=== PATIENT | female | born 1985 | race Caucasian/White ===

== ENCOUNTER → 2016-11-06 | Outpatient (CLI) | payer OTHER ==
[2016-11-06 13:03] LABS: BASO % 0.5 % (0.0-1.0); EOS # 0.1 K/mm3 (0.0-0.50); EOS % 1.3 % (0.0-3.0); LARGE UNSTAINED CELL # 0.2 K/mm3 (0.0-0.4); LARGE UNSTAINED CELL % 2.7 % (0.0-4.0); LYMPH # 2.2 K/mm3 (1.5-4.5); LYMPH % 27.1 % (24.0-44.0); MEAN CORPUSCULAR HEMOGLOBIN 30.4 pg (27.0-33.0); MEAN CORPUSCULAR HGB CONC 33.1 g/dl (32.0-36.5); MEAN CORPUSCULAR VOLUME 91.9 fl (80.0-96.0); MONO # 0.4 K/mm3 (0.0-0.8); MONO % 5.9 % (0.0-5.0); NEUTROPHILS # 4.6 K/mm3 (1.8-7.7); NEUTROPHILS % 62.5 % (36.0-66.0); PLATELET COUNT, AUTOMATED 250 k/mm3 (150-450); RED CELL DISTRIBUTION WIDTH 12.8 % (11.5-14.5); WHITE BLOOD COUNT 7.4 K/mm3 (4.0-10.0)
== END ==
LOC: M WUC 10:43
PROVIDERS: ATTEND Physician Assistant
DX: R53.83 Other fatigue (principal)

== ENCOUNTER → 2017-04-02 | Outpatient (CLI) | payer OTHER ==
[2017-04-02 20:13] LABS: FREE T4 0.79 NG/DL (0.76-1.46)
== END ==
LOC: M WUC 15:57
PROVIDERS: ATTEND Physician Assistant
DX: E03.9 Hypothyroidism, unspecified (principal)

== ENCOUNTER 2017-08-15 12:35 | Emergency (ER) | payer OTHER ==
[~2017-08-15] VITALS: Ht 160 cm; Wt 68.2 kg
[2017-08-15] MEDS ORDERED: LEVO25TA5 PO (12:41)
[2017-08-15] MEDS ORDERED: NS 1,000 ML IV ONE ×2 (13:30→14:15)
[2017-08-15 13:43] LABS: BASO % 0.4 % (0.0-1.0); EOS # 0.1 10^3/uL (0.0-0.50); EOS % 0.8 % (0.0-3.0); IMMATURE GRANULOCYTE % 0.7 % (0-0); LYMPH # 2.4 10^3/uL (1.5-4.5); LYMPH % 22.9 % (24.0-44.0); MEAN CORPUSCULAR HGB CONC 33.7 g/dl (32.0-36.5); MEAN CORPUSCULAR VOLUME 89.1 fl (80.0-96.0); MONO # 0.5 10^3/uL (0.0-0.8); MONO % 5.1 % (0.0-5.0); NEUTROPHILS # 7.4 10^3/uL (1.8-7.7); NEUTROPHILS % 70.1 % (36.0-66.0); PLATELET COUNT, AUTOMATED 320 10^3/uL (150-450); RED CELL DISTRIBUTION WIDTH 12.8 % (11.5-14.5); WHITE BLOOD COUNT 10.5 10^3/uL (4.0-10.0)
[2017-08-15] MEDS ORDERED: MORPHINE 4 MG/ML 1ML SYRINGE IV ONE (13:45)
[2017-08-15 14:09] LABS: ANION GAP 6 MEQ/L (8-16); BLOOD UREA NITROGEN 7 MG/DL (7-18); CARBON DIOXIDE LEVEL 26 MEQ/L (21-32); CHLORIDE LEVEL 107 MEQ/L (98-107); CREATININE FOR GFR 0.72 MG/DL (0.55-1.02); GLOMERULAR FILTRATION RATE > 60.0 (>60); GLUCOSE, FASTING 105 MG/DL (70-105); POTASSIUM SERUM 3.8 MEQ/L (3.5-5.1); SODIUM LEVEL 139 MEQ/L (136-145)
--- NOTE | 2017-08-15 15:17 | REP ---
PELVIC ULTRASOUND: Real-time sonographic evaluation of the pelvis performed utilizing transabdominal and endovaginal technique. The uterus measures 9.3 x 4.6 x 5.8 cm. Endometrium is thickened at 20 mm. Clot is seen in the cervix. There is no intrauterine gestational sac present. Right ovary measures 3.5 x 2.1 x 2.7 cm and contains a complex cystic structure, 1.9 x 1.2 x 1.3 cm, probably representing a corpus luteum. Left ovary is normal in size and echotexture measuring 3.2 x 2.2 x 2.4 cm. There is no other evidence of adnexal mass or free fluid. There is no evidence of ovarian torsion, with blood flow seen in each ovary with duplex Doppler evaluation, RI right ovary 0.48 and left ovary 0.63. IMPRESSION: Thickened endometrium at 20 mm with apparent clot in the cervix. No intrauterine gestational sac. No adnexal mass or free fluid. Complex cystic structure in the right ovary 1.9 cm in diameter probably represents a complex corpus luteum. Findings most likely represent missed (AB). I cannot exclude ectopic . Signed by Garrick Man MD 08/15/2017 03:20 P
[2017-08-15] MEDS ORDERED: ZOFR4TAB3 PO (15:50)
[2017-08-15] MEDS ORDERED: NORCOTAB PO (15:50)
[2017-08-15 16:10] VITALS: BP 103/56
== END 2017-08-15 16:12 | disposition home or self-care (01) ==
LOC: M ED 12:35
DX: O03.9 Complete or unspecified spontaneous abortion without complication (principal); O20.8 Other hemorrhage in early pregnancy; O99.281 Endocrine, nutritional and metabolic diseases complicating pregnancy, first trimester; Z79.899 Other long term (current) drug therapy; Z88.0 Allergy status to penicillin

== ENCOUNTER → 2017-08-15 | Outpatient (CLI) | payer OTHER ==
[~2017-08-15] MED LIST: LEVO25TA5 PO; NORCOTAB PO; ZOFR4TAB3 PO
== END ==
LOC: M WUC 10:38
PROVIDERS: ATTEND Advanced Practice Midwife
DX: O02.1 Missed abortion (principal)

== ENCOUNTER → 2017-08-22 | Outpatient (CLI) | payer OTHER | LOC: M WUC 13:07 | PROVIDERS: ATTEND Advanced Practice Midwife | DX: O02.1 Missed abortion (principal) ==

== ENCOUNTER → 2017-10-04 | Outpatient (CLI) | payer OTHER ==
[2017-10-04 19:04] LABS: HCG, SERUM QUANTITATIVE 5 MIU/ML
== END ==
LOC: M WUC 11:12
DX: O02.1 Missed abortion (principal)
CPT/HCPCS: 84702

== ENCOUNTER → 2017-12-06 | Outpatient (CLI) | payer OTHER ==
[2017-12-06 16:57] LABS: BASO % 0.5 % (0.0-1.0); EOS # 0.1 10^3/uL (0.0-0.50); HEMATOCRIT 37.8 % (36.0-47.0); HEMOGLOBIN 12.6 g/dl (12.0-16.0); IMMATURE GRANULOCYTE % 0.4 % (0-3.0); LYMPH # 2.6 10^3/uL (1.5-4.5); LYMPH % 31.3 % (24.0-44.0); MEAN CORPUSCULAR HEMOGLOBIN 28.1 pg (27.0-33.0); MEAN CORPUSCULAR HGB CONC 33.3 g/dl (32.0-36.5); MEAN CORPUSCULAR VOLUME 84.2 fl (80.0-96.0); MONO # 0.6 10^3/uL (0.0-0.8); NEUTROPHILS % 59.8 % (36.0-66.0); PLATELET COUNT, AUTOMATED 288 10^3/uL (150-450); RED BLOOD COUNT 4.49 10^6/uL (4.00-5.40); RED CELL DISTRIBUTION WIDTH 15.5 % (11.5-14.5); WHITE BLOOD COUNT 8.4 10^3/uL (4.0-10.0)
[2017-12-06 17:23] LABS: FREE T4 0.88 NG/DL (0.76-1.46)
[2017-12-06 18:13] LABS: CHLAMYDIA DNA AMPLIFICATION NEGATIVE (NEGATIVE); GC DNA AMPLIFICATION NEGATIVE (NEGATIVE)
[2017-12-07 11:01] LABS: RUBELLA IgG QUALITATIVE IMMUNE (IMMUNE)
[2017-12-07 11:22] LABS: HBsAg Prenatal NEGATIVE (NEGATIVE)
[2017-12-07 11:39] LABS: HIV 1&2 SCREEN CENTAUR NEGATIVE (NEGATIVE)
== END ==
LOC: M WUC 14:06
DX: Z34.81 Encounter for supervision of other normal pregnancy, first trimester (principal); Z3A.08 8 weeks gestation of pregnancy

== ENCOUNTER → 2017-12-10 | Outpatient (REF) | payer OTHER | LOC: M LABWUC 16:12 | DX: Z34.81 Encounter for supervision of other normal pregnancy, first trimester (principal); Z3A.08 8 weeks gestation of pregnancy | CPT/HCPCS: 86900 ==

== ENCOUNTER → 2017-12-20 | Outpatient (REF) | payer OTHER | LOC: M LAB REF 16:58 | DX: Z34.81 Encounter for supervision of other normal pregnancy, first trimester (principal); Z3A.00 Weeks of gestation of pregnancy not specified ==

== ENCOUNTER → 2018-02-06 | Outpatient (CLI) | payer OTHER, MEDICAID ==
[2018-02-06 17:19] LABS: FREE T4 0.87 NG/DL (0.76-1.46)
== END ==
LOC: M WUC 14:43
DX: E03.9 Hypothyroidism, unspecified (principal)
CPT/HCPCS: 84443

== ENCOUNTER → 2018-02-11 | Outpatient (CLI) | payer OTHER, MEDICAID | LOC: M SMT 10:03 | DX: Z34.82 Encounter for supervision of other normal pregnancy, second trimester (principal); Z36.89 Encounter for other specified antenatal screening; Z3A.18 18 weeks gestation of pregnancy | CPT/HCPCS: 76811 ==

== ENCOUNTER → 2018-03-04 | Outpatient (CLI) | payer OTHER, MEDICAID | LOC: M SMT 07:53 | DX: Z34.82 Encounter for supervision of other normal pregnancy, second trimester (principal); Z36.89 Encounter for other specified antenatal screening; Z3A.21 21 weeks gestation of pregnancy | CPT/HCPCS: 76816 ==

== ENCOUNTER → 2018-04-26 | Outpatient (CLI) | payer OTHER, MEDICAID ==
[2018-04-26 19:15] LABS: GLUCOSE CHALLENGE TEST 1 HOUR 147 MG/DL (LESS THAN 140)
[2018-04-26 19:21] LABS: BASO % 0.4 % (0.0-1.0); EOS # 0.1 10^3/uL (0.0-0.50); EOS % 0.7 % (0.0-3.0); HEMATOCRIT 35.3 % (36.0-47.0); HEMOGLOBIN 11.7 g/dl (12.0-15.5); IMMATURE GRANULOCYTE % 1.5 % (0-3.0); LYMPH # 2.4 10^3/uL (1.5-4.5); LYMPH % 22.9 % (24.0-44.0); MEAN CORPUSCULAR HEMOGLOBIN 30.6 pg (27.0-33.0); MEAN CORPUSCULAR HGB CONC 33.1 g/dl (32.0-36.5); MEAN CORPUSCULAR VOLUME 92.4 fl (80.0-96.0); MONO # 0.7 10^3/uL (0.0-0.8); MONO % 6.6 % (0.0-5.0); NEUTROPHILS # 7.2 10^3/uL (1.8-7.7); NEUTROPHILS % 67.9 % (36.0-66.0); PLATELET COUNT, AUTOMATED 288 10^3/uL (150-450); RED BLOOD COUNT 3.82 10^6/uL (4.00-5.40); RED CELL DISTRIBUTION WIDTH 13.5 % (11.5-14.5); WHITE BLOOD COUNT 10.6 10^3/uL (4.0-10.0)
== END ==
LOC: M SMT 13:09
DX: Z34.82 Encounter for supervision of other normal pregnancy, second trimester (principal)

== ENCOUNTER → 2018-05-09 | Outpatient (CLI) | payer OTHER, MEDICAID ==
[2018-05-09 08:25] LABS: GLUCOSE, FASTING 84 MG/DL (LESS THAN 95)
[2018-05-09 08:50] LABS: 1 HR GLUCOSE 148 MG/DL (LESS THAN 180)
[2018-05-09 10:12] LABS: 2 HR GLUCOSE 92 MG/DL (LESS THAN 155)
[2018-05-09 10:51] LABS: 3 HR GLUCOSE 77 MG/DL (LESS THAN 140)
== END ==
LOC: M LAB 07:01
DX: Z36.89 Encounter for other specified antenatal screening (principal); Z3A.00 Weeks of gestation of pregnancy not specified
CPT/HCPCS: 82951

== ENCOUNTER → 2018-06-14 | Outpatient (REF) | payer OTHER, MEDICAID | LOC: M LAB REF 16:51 | DX: Z34.83 Encounter for supervision of other normal pregnancy, third trimester (principal) ==

== ENCOUNTER → 2018-06-24 | Outpatient (CLI) | payer OTHER, MEDICAID | LOC: M WUC 15:49 | DX: Z34.83 Encounter for supervision of other normal pregnancy, third trimester (principal) ==

== ENCOUNTER 2018-07-20 18:26 | Outpatient (CLI) | payer OTHER, MEDICAID | END 2018-07-20 20:30 | disposition home or self-care (01) | LOC: M LDO 18:26 | DX: O47.1 False labor at or after 37 completed weeks of gestation (principal); Z3A.41 41 weeks gestation of pregnancy | CPT/HCPCS: 59025 ==

== ENCOUNTER → 2019-01-03 | Outpatient (CLI) | payer OTHER, MEDICAID ==
[~2019-01-03] MED LIST changes: +HYDR-3715 PO; +IBUP1TAB7 PO; +LEVO50TA5 PO; -NORCOTAB PO; +PERCOCET PO; +PRENTAB9 PO; +ZOFR4TAB14 PO; -ZOFR4TAB3 PO
[2019-01-03 18:38] LABS: FREE T4 0.73 NG/DL (0.76-1.46); THYROID STIMULATING HORMONE 6.28 uIU/ML (0.358-3.740)
== END ==
LOC: M WUC 10:58
PROVIDERS: ATTEND Nurse Practitioner Family
DX: E06.3 Autoimmune thyroiditis (principal)

== ENCOUNTER → 2019-01-06 | Outpatient (REF) | payer OTHER, MEDICAID | LOC: M LAB REF 17:10 | PROVIDERS: ATTEND Internal Medicine Endocrinology, Diabetes & Metabolism | DX: E04.1 Nontoxic single thyroid nodule (principal) ==

== ENCOUNTER → 2019-01-07 | Outpatient (CLI) | payer OTHER, MEDICAID | LOC: M WUC 11:04 | PROVIDERS: ATTEND Internal Medicine Endocrinology, Diabetes & Metabolism | DX: E04.1 Nontoxic single thyroid nodule (principal) ==

== ENCOUNTER 2019-10-13 09:47 | Day surgery (SDC) | payer OTHER ==
[~2019-10-13] VITALS: Ht 160 cm; Wt 74.1 kg
[~2019-10-13 09:47] MED LIST changes: +LIDOCAINE 1% MDV 20ML VIAL SQ PRN; +LR 1,000 ML IV SCH
[2019-10-13 10:24] LABS: HEMOGLOBIN 13.7 g/dl (12.0-15.5); MEAN CORPUSCULAR HEMOGLOBIN 28.5 pg (27.0-33.0); MEAN CORPUSCULAR HGB CONC 32.6 g/dl (32.0-36.5); MEAN CORPUSCULAR VOLUME 87.5 fl (80.0-96.0); PLATELET COUNT, AUTOMATED 308 10^3/uL (150-450); WHITE BLOOD COUNT 6.9 10^3/uL (4.0-10.0)
[2019-10-13] MEDS ORDERED: LIDOCAINE 1% SDV INJ 30 ML VIAL As Ordered ONE (11:50)
[2019-10-13] MEDS ORDERED: MIDAZOLAM INJ 2 MG/2 ML VIAL (J2250) As Ordered ONE (11:55)
[2019-10-13] MEDS ORDERED: propofoL 200 MG/20 ML VIAL As Ordered ONE ×2 (11:55→11:59)
[2019-10-13] MEDS ORDERED: fentaNYL 100 MCG/2 ML INJECTION (J3010) As Ordered ONE (11:55)
[2019-10-13] MEDS ORDERED: PHENYLephrine HCL 500 MCG/5 ML (100MCG/ML) SYRINGE (J2370) As Ordered ONE (12:10)
[2019-10-13] MEDS ORDERED: ePHEDrine SULFATE 25 MG/5 ML(5MG/ML) SYRINGE As Ordered ONE (12:10)
[2019-10-13] MEDS ORDERED: KETOROLAC 60 MG/2 ML VIAL (J1885) As Ordered ONE (12:14)
--- NOTE | 2019-10-13 12:41 | RO ---
DATE OF PROCEDURE: 10/13/2019 PREPROCEDURE DIAGNOSIS: Embryonic demise at 8 weeks gestation. POSTPROCEDURE DIAGNOSIS: Embryonic demise at 8 weeks gestation. PROCEDURE: D, E, and C. SURGEON: Cain Tucker MD STATION EXAMINER: ANESTHESIA: Local with sedation. ESTIMATED BLOOD LOSS: 50 mL. URINE OUTPUT: 50 mL. FINDINGS: Moderate amounts of products of conception, retroverted uterus. DESCRIPTION OF PROCEDURE: The patient was taken to the operative room where IV sedation was given. She was prepped and draped in a sterile fashion in the dorsal lithotomy position. Speculum was placed in the vagina. The cervix was injected circumferentially with 20 mL of 1% Lidocaine. The anterior lip of the cervix was grasped with a tenaculum. Cervix was dilated with taper dilators. 9 mm suction curette was placed through the internal os. The suction device was activated and the probe gently rotated until products of conception were noted coming through the suction tubing. Sharp curettage was performed, the uterine cavity was deemed to be empty. Good hemostasis noted. Sponge and instrument counts were correct.
[2019-10-13] MEDS ORDERED: ONDANSETRON 4MG/2ML VIAL (J2405) IV PRN (12:45)
[2019-10-13] MEDS ORDERED: METOCLOPRAMIDE INJ 10MG/2ML VIAL (J2765) IV PRN (12:45)
[2019-10-13] MEDS ORDERED: LR 1,000 ML IV SCH ×2 (12:45→13:30)
[2019-10-13] MEDS ORDERED: PERCOCET 5MG/325MG TAB PO PRN (12:45)
[2019-10-13 12:55] VITALS: BP 106/59
[2019-10-13] MEDS ORDERED: ACETAMINOPHEN 500 MG TAB PO ONE (13:00)
[2019-10-13] MEDS ORDERED: DOXYCYCLINE HYCLATE 100 MG TAB PO ONE (14:00)
[2019-10-13] MEDS ORDERED: ACETAMINOPHEN *IV* 1,000 MG in IV 1 EA IV ONE (14:00)
== END 2019-10-13 13:45 | disposition home or self-care (01) ==
LOC: M SDC 09:47
PROVIDERS: ATTEND Specialist
DX: O02.1 Missed abortion (principal); E03.9 Hypothyroidism, unspecified; G43.909 Migraine, unspecified, not intractable, without status migrainosus; Z88.0 Allergy status to penicillin; Z91.030 Bee allergy status; Z79.899 Other long term (current) drug therapy
CPT/HCPCS: 36415; 59820; 85027; 88305; J1885; J2250; J2370; J3010

== ENCOUNTER 2019-11-29 13:24 | Emergency (ER) | payer OTHER ==
[~2019-11-29] VITALS: Ht 160 cm; Wt 73.1 kg
[~2019-11-29 13:24] MED LIST changes: -LIDOCAINE 1% MDV 20ML VIAL SQ PRN; -LR 1,000 ML IV SCH
[2019-11-29] MEDS ORDERED: ONDA-83 (13:30)
[2019-11-29] MEDS ORDERED: LEVO125T4 (13:30)
[2019-11-29] MEDS ORDERED: PHEN-593 (13:30)
[2019-11-29] MEDS ORDERED: NITR100C2 (13:30)
[2019-11-29] MEDS ORDERED: GI COCKTAIL 50ML BTL(HYOSCYAMINE/MAALOX/LIDOCAINE VISCOUS)(1:3:1) PO ONE (14:15)
--- NOTE | 2019-11-29 14:15 | REP ---
Portable chest x-ray: Single view. History: Chest pain. Findings: The lungs are well inflated and clear. The pleural angles are sharp. Cardiomediastinal silhouette is unremarkable. No bony abnormalities seen. Pulmonary vasculature is not increased. Impression: Negative portable chest x-ray. Electronically Signed by All Bennett MD 11/29/2019 02:07 P
[2019-11-29 14:39] LABS: BASO % 0.3 % (0.0-1.0); EOS # 0.1 10^3/uL (0.0-0.5); EOS % 1.8 % (0.0-3.0); HEMATOCRIT 42.4 % (36.0-47.0); LYMPH # 2.3 10^3/uL (1.5-5.0); LYMPH % 33.4 % (24.0-44.0); MEAN CORPUSCULAR HEMOGLOBIN 28.9 pg (27.0-33.0); MEAN CORPUSCULAR VOLUME 87.4 fl (80.0-96.0); MONO # 0.5 10^3/uL (0.0-0.8); MONO % 7.9 % (0.0-5.0); NEUTROPHILS # 3.8 10^3/uL (1.5-8.5); NEUTROPHILS % 56.3 % (36.0-66.0); PLATELET COUNT, AUTOMATED 310 10^3/uL (150-450); RED BLOOD COUNT 4.85 10^6/uL (4.00-5.40); WHITE BLOOD COUNT 6.7 10^3/uL (4.0-10.0)
[2019-11-29 14:50] LABS: INR 1.01
[2019-11-29 14:53] LABS: D-DIMER QUANT 525.1 ng/ml (<500)
[2019-11-29 15:01] LABS: HCG, SERUM QUALITATIVE NEGATIVE (NEGATIVE)
[2019-11-29 15:03] LABS: ALBUMIN 4.1 GM/DL (3.2-5.2); ALT/SGPT 21 U/L (12-78); BILIRUBIN,DIRECT < 0.1 MG/DL (0.0-0.2); BILIRUBIN,TOTAL 0.2 MG/DL (0.2-1.0); BLOOD UREA NITROGEN 13 MG/DL (7-18); CALCIUM LEVEL 8.8 MG/DL (8.5-10.1); CARBON DIOXIDE LEVEL 25 MEQ/L (21-32); CHLORIDE LEVEL 108 MEQ/L (98-107); CK-MB VALUE MASS < 1.0 NG/ML (<3.6); CPK CREATINE PHOSPHOKINASE 56 U/L (26-192); CREATININE FOR GFR 0.88 MG/DL (0.55-1.30); GLOMERULAR FILTRATION RATE > 60.0 (>60); GLUCOSE, FASTING 96 MG/DL (70-100); LIPASE 116 U/L (73-393); MB/CK RELATIVE INDEX 1.79 (< OR =4); POTASSIUM SERUM 4.1 MEQ/L (3.5-5.1); SODIUM LEVEL 141 MEQ/L (136-145); TOTAL PROTEIN 7.3 GM/DL (6.4-8.2); TROPONIN I < 0.02 NG/ML (< 0.10)
[2019-11-29 15:05] LABS: INFLUENZA A AMPLIFICATION NEGATIVE (NEGATIVE); INFLUENZA B AMPLIFICATION NEGATIVE (NEGATIVE)
[2019-11-29] MEDS ORDERED: ISOVUE-370 76% 100ML VIAL (Q9967) As Ordered ONE (15:39)
[2019-11-29] MEDS ORDERED: KETOROLAC 30 MG/ML VIAL (J1885) IV ONE (16:30)
[2019-11-29 17:30] VITALS: BP 100/56
[2019-11-29] MEDS ORDERED: BACT800T5 PO (17:54)
[2019-11-29] MEDS ORDERED: PRIL20TA2 PO (17:56)
--- NOTE | 2019-11-29 18:47 | ECGEPIP ---
[facility] - ED Test Date: 2019-11-29 Pat Name: SAUNDRA MAR Department: Room: - Gender: Female [employer] Manager: TC : 1985 Requested By: Segundo Lopez Order Number: [id number] Reading MD: Clare Sanchez Measurements Intervals [place] Rate: 80 P: 38 SC: 121 QRS: 64 QRSD: 94 T: 41 QT: 366 QTc: 425 Interpretive Statements SINUS RHYTHM MINIMAL ST DEPRESSION NO PRIOR Electronically Signed on 11-29-2019 18:47:41 EST by Clare Sanchez
--- NOTE | 2019-11-30 06:52 | REP ---
CT pulmonary angiogram: With IV contrast. History: Chest pain, recent surgery. Elevated D-dimer. Comparison studies: No comparison study. Contrast dose: 75 mL of Isovue [address] technique: Helical scanning is acquired and overlapping 1.5 mm and contiguous 3 mm axial images are reformatted. In addition, maximum intensity projection and multiplanar re-formation images are generated in sagittal and coronal imaging projections. CT pulmonary angiographic findings: There is good opacification of the pulmonary arterial tree. There is no evidence of vessel cutoff or filling defect to suggest pulmonary embolism. Thoracic aorta shows no evidence of aneurysm or dissection. There is no evidence of pleural or pericardial effusion. The lung stone are clear. No infiltrate or atelectasis is seen. No pulmonary nodule or mass lesion is observed. No bony destructive lesion is appreciated. The gallbladder is surgically absent. The visualized upper abdominal structures are otherwise unremarkable. There are tiny surgical clips in the thyroid bed post thyroidectomy. No axillary or supraclavicular adenopathy is seen. Impression: Negative CT pulmonary angiography. No CT evidence of pulmonary embolus or other acute abnormality. The gallbladder and thyroid gland are surgically absent. Electronically Signed by All Bennett MD 11/30/2019 07:48 A
== END 2019-11-29 18:13 | disposition home or self-care (01) ==
LOC: M ED 13:24
DX: R07.89 Other chest pain (principal); T50.905A Adverse effect of unspecified drugs, medicaments and biological substances, initial encounter; E03.9 Hypothyroidism, unspecified; Z79.899 Other long term (current) drug therapy; Z88.0 Allergy status to penicillin; Z91.030 Bee allergy status
CPT/HCPCS: 36415; 71045; 71275; 80048; 80076; 82550; 82553; 83690; 84484; 84703; 85025; 85379; 85610; 87502; 93005; 93041; 94760; 96374; 99285; J1885; Q9967

== ENCOUNTER → 2020-08-09 | Outpatient (CLI) | payer OTHER ==
[~2020-08-09] MED LIST changes: +BACT800T5 PO; +LEVO125T4; +NITR100C2; +ONDA-83; +PHEN-593; +PRIL20TA2 PO
[2020-08-09 13:45] LABS: FREE T4 1.3 NG/DL (0.76-1.46); THYROID STIMULATING HORMONE 2.71 uIU/ML (0.358-3.740)
== END ==
LOC: M WUC 10:07
PROVIDERS: ATTEND Specialist
DX: E03.9 Hypothyroidism, unspecified (principal)

== ENCOUNTER → 2020-08-26 | Outpatient (CLI) | payer OTHER ==
[~2020-08-26] MED LIST changes: -PHEN-593; +PHEN1TAB73
== END ==
LOC: M WUC 11:56
PROVIDERS: ATTEND Specialist
DX: N92.6 Irregular menstruation, unspecified (principal)

== ENCOUNTER → 2020-08-30 | Outpatient (CLI) | payer OTHER ==
[~2020-08-30] MED LIST changes: +MULTTAB20 PO
== END ==
LOC: M WUC 08:33
PROVIDERS: ATTEND Specialist
DX: N92.6 Irregular menstruation, unspecified (principal)

== ENCOUNTER 2020-09-03 09:16 | Day surgery (SDC) | payer OTHER ==
[~2020-09-03] VITALS: Ht 160 cm; Wt 71.1 kg
[~2020-09-03 09:16] MED LIST changes: -MULTTAB20 PO
[2020-09-03] MEDS ORDERED: MULTTAB20 PO (09:28)
[2020-09-03 09:45] LABS: HEMATOCRIT 41.1 % (36.0-47.0); HEMOGLOBIN 13.4 g/dl (12.0-15.5); MEAN CORPUSCULAR HGB CONC 32.6 g/dl (32.0-36.5); PLATELET COUNT, AUTOMATED 304 10^3/uL (150-450); RED BLOOD COUNT 4.62 10^6/uL (4.00-5.40); WHITE BLOOD COUNT 7.5 10^3/uL (4.0-10.0)
[2020-09-03] MEDS ORDERED: KETOROLAC 60MG 2ML VIAL As Ordered ONE (09:52)
[2020-09-03] MEDS ORDERED: dexameTHASONE 4 MG/ML 1ML VIAL (J1100 PER 1MG) As Ordered ONE (09:52)
[2020-09-03] MEDS ORDERED: ONDANSETRON 4MG/2ML VIAL As Ordered ONE (09:52)
[2020-09-03] MEDS ORDERED: LIDOCAINE 2% 100MG/5ML SDV (FOR ANES.) As Ordered ONE (09:52)
[2020-09-03] MEDS ORDERED: MIDAZOLAM INJ 2MG/2ML VIAL (J2250 PER 1MG) As Ordered ONE (09:53)
[2020-09-03] MEDS ORDERED: propofoL 500 MG/50 ML VIAL As Ordered ONE (09:53)
[2020-09-03] MEDS ORDERED: fentaNYL 100 MCG/2 ML INJECTION (J3010) As Ordered ONE (09:53)
--- NOTE | 2020-09-03 11:58 | ROOPDOC ---
[facility] Report Of Operation Report of Operation DATE OF PROCEDURE: 09/03/20 PREPROCEDURE DIAGNOSES: embryonic demise 7 weeks. POSTPROCEDURE DIAGNOSES: same. PROCEDURE: D+E+C. SURGEON: Janna Begum MD, MD ANESTHESIA: Local with sedation. ESTIMATED BLOOD LOSS: Approximately 20 mL. COMPLICATIONS: none. Findings: Moderate POC's, retroverted uterus. PROCEDURE NOTE: The patient was taken to the operating room where IV sedation was given. She was prepped and draped in a sterile fashion in the dorsal lithotomy position. A speculum was placed in the vagina. The anterior lip of the cervix was grasped with a tenaculum. The cervix was injected circumferentially with 18 cc of 1% lidocaine. The cervix was dilated with tapered dilators. A #8 mm suction curette was inserted through the internal os. The suction device was activated and the curette was gently rotated until products of conception were noted coming through the suction tubing. Sharp curettage was performed. The uterus was deemed empty. All instruments removed. Sponge and instrument counts were correct. The patient went to in stable condition.. JANNA BEGUM MD Sep 03, 2020 11:58
[2020-09-03] MEDS ORDERED: METHYLERGONOVINE MALEATE 0.2 MG/ML VIAL (J2210) As Ordered ONE (12:10)
[2020-09-03] MEDS ORDERED: miSOPROStol 200 MCG TAB (S0191) As Ordered ONE (12:10)
[2020-09-03] MEDS ORDERED: LIDOCAINE 1% SDV 30ML VIAL As Ordered ONE (12:10)
[2020-09-03 12:19] VITALS: BP 120/84
== END 2020-09-03 12:39 | disposition home or self-care (01) ==
LOC: M SDC 09:16
PROVIDERS: ATTEND Specialist
DX: O02.1 Missed abortion (principal); Z88.0 Allergy status to penicillin; Z91.030 Bee allergy status
CPT/HCPCS: 36415; 59820; 85027; 88305; J1100; J1885; J2250; J2405; J3010; U0002

== ENCOUNTER → 2021-10-06 | Outpatient (CLI) | payer OTHER ==
[~2021-10-06] MED LIST changes: +COLA100C5 PO; +IBUP80TA PO; +MULTTAB20 PO; +OXYC1TAB23 PO
== END ==
LOC: M PLALAB 10:37
PROVIDERS: ATTEND Obstetrics & Gynecology
DX: O36.80X0 Pregnancy with inconclusive fetal viability, not applicable or unspecified (principal)

== ENCOUNTER 2021-10-07 13:57 | Day surgery (SDC) | payer OTHER ==
[~2021-10-07] VITALS: Ht 160 cm; Wt 76.7 kg
[~2021-10-07 13:57] MED LIST changes: -COLA100C5 PO; -IBUP80TA PO; -OXYC1TAB23 PO
[2021-10-07 16:19] LABS: HEMATOCRIT 39.3 % (36.0-47.0); HEMOGLOBIN 13.4 g/dl (12.0-15.5); MEAN CORPUSCULAR HEMOGLOBIN 30.2 pg (27.0-33.0); MEAN CORPUSCULAR HGB CONC 34.1 g/dl (32.0-36.5); MEAN CORPUSCULAR VOLUME 88.7 fl (80.0-96.0); PLATELET COUNT, AUTOMATED 264 10^3/uL (150-450); RED BLOOD COUNT 4.43 10^6/uL (4.00-5.40); WHITE BLOOD COUNT 8.3 10^3/uL (4.0-10.0)
[2021-10-07] MEDS ORDERED: OXYC1TAB23 PO (16:45)
[2021-10-07] MEDS ORDERED: IBUP80TA PO (16:47)
[2021-10-07] MEDS ORDERED: COLA100C5 PO (16:47)
[2021-10-07] MEDS ORDERED: LR 1,000 ML IV ONE (19:55)
[2021-10-07] MEDS ORDERED: SCOPOLAMINE 1MG TRANSDERMAL PATCH TOP ONE (19:55)
[2021-10-07] MEDS ORDERED: dexameTHASONE 4 MG/ML 1ML VIAL (J1100 PER 1MG) As Ordered ONE (19:57)
[2021-10-07] MEDS ORDERED: propofoL 200 MG/20 ML VIAL As Ordered ONE (19:57)
[2021-10-07] MEDS ORDERED: LIDOCAINE 2% 100MG/5ML SDV (FOR ANES.) As Ordered ONE (19:57)
[2021-10-07] MEDS ORDERED: ROCURONIUM BROMIDE 50 MG/5 ML VIAL As Ordered ONE (19:57)
[2021-10-07] MEDS ORDERED: fentaNYL 100 MCG/2 ML INJECTION (J3010) As Ordered ONE (19:58)
[2021-10-07] MEDS ORDERED: ONDANSETRON 4MG/2ML VIAL As Ordered ONE (19:58)
[2021-10-07] MEDS ORDERED: MIDAZOLAM INJ 2MG/2ML VIAL (J2250 PER 1MG) As Ordered ONE (19:58)
[2021-10-07] MEDS ORDERED: METOCLOPRAMIDE INJ 10MG/2ML VIAL (J2765 PER 1) As Ordered ONE (19:58)
[2021-10-07] MEDS ORDERED: BUPIVACAINE HCL 0.25% 10ML VIAL As Ordered ONE (21:36)
[2021-10-07] MEDS ORDERED: SUGAMMADEX SODIUM 500 MG/5 ML VIAL (BRIDION) As Ordered ONE (23:54)
[2021-10-07] MEDS ORDERED: KETOROLAC 60MG 2ML VIAL As Ordered ONE (23:54)
[2021-10-07] MEDS ORDERED: ACETAMINOPHEN 1000MG 100ML IV BTL (OFIRMEV) (J0131 PER 10MG) As Ordered ONE (23:54)
[2021-10-08] VITALS (8 sets, daily range): BP systolic 88–101; BP diastolic 52–63
[2021-10-08] MEDS ORDERED: fentaNYL 100 MCG/2 ML INJECTION (J3010) As Ordered ONE (00:09)
[2021-10-08] MEDS ORDERED: CLINDAMYCIN 900 MG/50 ML PREMIX BAG As Ordered ONE (00:29)
[2021-10-08] MEDS ORDERED: ONDANSETRON 4MG/2ML VIAL IV PRN (01:20)
[2021-10-08] MEDS ORDERED: oxyCODONE 5MG TAB PO PRN (01:20)
[2021-10-08] MEDS ORDERED: fentaNYL 100 MCG/2 ML INJECTION (J3010) IV PRN (01:20)
[2021-10-08] MEDS ORDERED: LR 1,000 ML IV SCH ×2 (01:20→01:45)
[2021-10-08] MEDS ORDERED: HYDROMORPHONE HCL 0.5 MG/ 0.5 ML SYRINGE (J1170 PER 1) IV PRN (01:20)
[2021-10-08] MEDS ORDERED: MORPHINE 4 MG/ML 1ML VIAL/SYRINGE (J2270) IV PRN (01:50)
[2021-10-08] MEDS ORDERED: PROMETHAZINE INJ 25 MG/ML VIAL (J2550) IV PRN (01:50)
[2021-10-08] MEDS ORDERED: GENTAMICIN 360 MG in D5W 50 ML IV ONE (03:00)
[2021-10-08] MEDS ORDERED: KETOROLAC 30 MG/ML 1ML VIAL IV PRN (06:00)
== END 2021-10-08 12:15 | disposition home or self-care (01) ==
LOC: M SDC 13:57 → M PED 10-08 01:35 → M SDC 10-08 12:15
PROVIDERS: ATTEND Obstetrics & Gynecology
DX: O00.101 Right tubal pregnancy without intrauterine pregnancy (principal); Z88.0 Allergy status to penicillin; Z91.030 Bee allergy status
CPT/HCPCS: 36415; 59151; 85027; 86850; 86900; 86901; 88305; J0131; J1100; J1580; J1885; J2250; J2405; J2765; J3010

== ENCOUNTER → 2023-02-23 | Outpatient (CLI) | payer OTHER ==
[~2023-02-23] MED LIST changes: +COLA100C5 PO; +IBUP80TA PO; +OXYC1TAB23 PO
[2023-02-23 15:30] LABS: BASO # 0.1 10^3/uL (0.0-0.2); BASO % 0.7 % (0.0-1.0); EOS # 0.2 10^3/uL (0.0-0.5); EOS % 2.1 % (0.0-3.0); HEMATOCRIT 38.2 % (36.0-47.0); HEMOGLOBIN 12.9 g/dl (12.0-15.5); LYMPH # 3.2 10^3/uL (1.5-5.0); LYMPH % 38.5 % (24.0-44.0); MEAN CORPUSCULAR HEMOGLOBIN 30.1 pg (27.0-33.0); MEAN CORPUSCULAR HGB CONC 33.8 g/dl (32.0-36.5); MEAN CORPUSCULAR VOLUME 89.3 fl (80.0-96.0); MONO # 0.6 10^3/uL (0.0-0.8); MONO % 7.5 % (2.0-8.0); NEUTROPHILS # 4.2 10^3/uL (1.5-8.5); NEUTROPHILS % 50.8 % (36.0-66.0); PLATELET COUNT, AUTOMATED 300 10^3/uL (150-450); RED BLOOD COUNT 4.28 10^6/uL (4.00-5.40); WHITE BLOOD COUNT 8.3 10^3/uL (4.0-10.0)
[2023-02-23 15:44] LABS: HEMOGLOBIN A1c 4.9 % (4.0-6.0)
[2023-02-23 15:54] LABS: ALBUMIN 3.8 G/DL (3.2-5.2); ALKALINE PHOSPHATASE 46 U/L (46-116); ALT/SGPT 18 U/L (7.0-40); AST/SGOT 13 U/L (<34); BILIRUBIN,TOTAL 0.5 MG/DL (0.3-1.2); BLOOD UREA NITROGEN 15 MG/DL (9-23); CALCIUM LEVEL 8.4 MG/DL (8.5-10.1); CARBON DIOXIDE LEVEL 26 MMOL/L (20-31); CHLORIDE LEVEL 108 MMOL/L (98-107); CHOLESTEROL LEVEL 186 MG/DL (<200); CHOLESTEROL RISK RATIO 2.51 (<5); CREATININE FOR GFR 0.88 MG/DL (0.55-1.30); GLOMERULAR FILTRATION RATE > 60.0 (>60); GLUCOSE, FASTING 88 MG/DL (60-100); HDL CHOLESTEROL 73.9 MG/DL (>40); LDL CHOLESTEROL 100.5 MG/DL (<100); MAGNESIUM LEVEL 1.9 MG/DL (1.8-2.4); NON-HDL-C 112.1 MG/DL; POTASSIUM SERUM 4.2 MMOL/L (3.5-5.1); SODIUM LEVEL 139 MMOL/L (136-145); TOTAL PROTEIN 6.6 G/DL (5.7-8.2); TRIGLYCERIDES LEVEL 58 MG/DL (<150)
[2023-02-23 15:55] LABS: TOTAL 25(OH) VITAMIN D 31.2 NG/ML (20.0-100.0); VITAMIN B12 LEVEL 342 PG/ML (211-911)
== END ==
LOC: M PLALAB 13:55
PROVIDERS: ATTEND Physician Assistant
DX: E55.9 Vitamin D deficiency, unspecified (principal); E03.9 Hypothyroidism, unspecified; Z76.89 Persons encountering health services in other specified circumstances; Z13.220 Encounter for screening for lipoid disorders; Z83.3 Family history of diabetes mellitus

== ENCOUNTER → 2024-04-03 | Outpatient (CLI) | payer OTHER | LOC: M WHC 08:26 | PROVIDERS: ATTEND Advanced Practice Midwife | DX: Z12.31 Encounter for screening mammogram for malignant neoplasm of breast (principal) ==

== ENCOUNTER → 2024-04-03 | Outpatient (REF) | payer OTHER ==
[2024-04-05 13:38] LABS: HPV APTIMA Not Detected (Not Detected)
== END ==
LOC: M PLALAB 09:07
PROVIDERS: ATTEND Advanced Practice Midwife
DX: Z12.4 Encounter for screening for malignant neoplasm of cervix (principal)
CPT/HCPCS: 87624; G0123

== ENCOUNTER → 2024-04-28 | Outpatient (REF) | payer OTHER | LOC: M SFHCPLAZ 14:26 | PROVIDERS: ATTEND Student in an Organized Health Care Education/Training Program | DX: R21 Rash and other nonspecific skin eruption (principal); Z13.220 Encounter for screening for lipoid disorders; Z13.1 Encounter for screening for diabetes mellitus; E03.9 Hypothyroidism, unspecified ==

== ENCOUNTER → 2024-04-28 | Outpatient (CLI) | payer OTHER ==
[2024-04-28 21:47] LABS: HIV 1&2 SCREEN NEGATIVE (NEGATIVE)
== END ==
LOC: M WUC 15:05
DX: R21 Rash and other nonspecific skin eruption (principal)

== ENCOUNTER → 2024-05-29 | Outpatient (REF) | payer OTHER | LOC: M SFHCPLAZ 16:16 | DX: E03.9 Hypothyroidism, unspecified (principal); E78.00 Pure hypercholesterolemia, unspecified; Z79.899 Other long term (current) drug therapy; R53.83 Other fatigue; Z13.1 Encounter for screening for diabetes mellitus ==

== ENCOUNTER → 2024-07-07 | Outpatient (CLI) | payer OTHER ==
[2024-07-07 11:14] LABS: BASO % 0.6 % (0.0-1.0); EOS # 0.2 10^3/uL (0.0-0.5); EOS % 3.9 % (0.0-3.0); HEMATOCRIT 39.4 % (36.0-47.0); HEMOGLOBIN 13.2 g/dl (12.0-15.5); LYMPH # 2.8 10^3/uL (1.5-5.0); LYMPH % 44.5 % (24.0-44.0); MEAN CORPUSCULAR HEMOGLOBIN 29.6 pg (27.0-33.0); MEAN CORPUSCULAR HGB CONC 33.5 g/dl (32.0-36.5); MEAN CORPUSCULAR VOLUME 88.3 fl (80.0-96.0); MONO # 0.5 10^3/uL (0.0-0.8); MONO % 7.9 % (2.0-8.0); NEUTROPHILS # 2.7 10^3/uL (1.5-8.5); NEUTROPHILS % 42.8 % (36.0-66.0); PLATELET COUNT, AUTOMATED 259 10^3/uL (150-450); RED BLOOD COUNT 4.46 10^6/uL (4.00-5.40); WHITE BLOOD COUNT 6.2 10^3/uL (4.0-10.0)
[2024-07-07 11:42] LABS: ALBUMIN 3.7 G/DL (3.2-5.2); ALKALINE PHOSPHATASE 42 U/L (46-116); ALT/SGPT 12 U/L (7.0-40); AST/SGOT 9 U/L (<34); BILIRUBIN,TOTAL 0.7 MG/DL (0.3-1.2); BLOOD UREA NITROGEN 13 MG/DL (9-23); CARBON DIOXIDE LEVEL 26 MMOL/L (20-31); CHLORIDE LEVEL 111 MMOL/L (98-107); CHOLESTEROL LEVEL 207 MG/DL (<200); CHOLESTEROL RISK RATIO 2.97 (<5); CREATININE FOR GFR 0.84 MG/DL (0.55-1.30); GLOMERULAR FILTRATION RATE > 60.0 (>58); GLUCOSE, FASTING 92 MG/DL (60-100); HDL CHOLESTEROL 69.6 MG/DL (>40); LDL CHOLESTEROL 122.2 MG/DL (<100); NON-HDL-C 137.4 MG/DL; SODIUM LEVEL 138 MMOL/L (136-145); THYROID STIMULATING HORMONE 0.996 uIU/ML (0.55-4.78); TOTAL 25(OH) VITAMIN D 25.7 NG/ML (20.0-100.0); TOTAL PROTEIN 6.8 G/DL (5.7-8.2); TRIGLYCERIDES LEVEL 76 MG/DL (<150)
[2024-07-07 11:43] LABS: HEMOGLOBIN A1c 4.8 % (4.0-6.0); VITAMIN B12 LEVEL 373 PG/ML (211-911)
[2024-07-07 12:11] LABS: FOLATE 9.4 NG/ML (>5.4)
== END ==
LOC: M WUC 08:02
DX: E78.00 Pure hypercholesterolemia, unspecified (principal); Z79.899 Other long term (current) drug therapy; R53.83 Other fatigue; E03.9 Hypothyroidism, unspecified; Z13.1 Encounter for screening for diabetes mellitus